=== PATIENT | female | born 1995 | race Caucasian/White ===

== ENCOUNTER 2017-10-18 13:30 | Emergency (ER) | payer MEDICAID | END 2017-10-18 15:45 | disposition home or self-care (01) | LOC: FTE 13:30 | DX: J06.9 Acute upper respiratory infection, unspecified (principal); F17.210 Nicotine dependence, cigarettes, uncomplicated | CPT/HCPCS: 99283; Z7502 ==

== ENCOUNTER 2018-10-20 15:07 | Emergency (ER) | payer MEDICAID | END 2018-10-20 18:51 | disposition home or self-care (01) | LOC: FTE 15:07 | DX: K52.9 Noninfective gastroenteritis and colitis, unspecified (principal); Z33.1 Pregnant state, incidental | CPT/HCPCS: 81025; 99282 ==